=== PATIENT | female | born 1990 | race Caucasian/White ===

== ENCOUNTER 2019-03-11 02:28 | Emergency (ER) | payer MEDICAID ==
[2019-03-11] MEDS ORDERED: Sodium Chloride 0.9% 10 ML Syringe FLUSH PRN (03:09)
[2019-03-11] MEDS: Sodium Chloride 0.9% 1,000 ML IV ONE (03:28)
[2019-03-11] MEDS: Ondansetron 4 MG/2 ML SDV IVPUSH ONE (03:28)
--- NOTE | 2019-03-11 04:26 | EDM.PDOC ---
ED HPI GENERAL MEDICAL PROBLEM - General Chief Complaint: Abdominal Pain Stated Complaint: VOMMITING Time Seen by Provider: 03/11/19 02:40 Source of Information: Reports: Patient, Family History Limitations: Reports: No Limitations - History of Present Illness INITIAL COMMENTS - FREE TEXT/NARRATIVE: patient presents with concern for abdominal cramping, vomiting and diarrhea which started about 6pm this evening. Had some supper just prior of brats/hot dogs, significant other ate the same thing. No blood in diarrhea or vomit. History of ovarian cysts and endometriosis, but states this pain feels much different. hasn't tried to eat anything since then. Feels lightheaded, states she had multiple bowel movements and episodes of diarrhea, afraid she is dehydrated. No fever, but some chills and sweats romeo around throwing up. Notes her urine is slightly dark but does not have any other symptoms such as burning , urgency, or dribbling. No back/flank pain. History diabetes type II, started on insulin 3 years ago. Developed some peripheral neuropathy and started taking care of her diabetes better, has lost weight, is diligent with her insulin. BG 125 last night then took 6 units of her short acting. 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 Last A1c was 7. On metfomin but no ACEi. Sexually active, no contraception, LMP 1 week ago, last 3 days, normal for her. Lower Abdomen Pain Score (Numeric/FACES): 8 - Related Data Allergies Allergy/AdvReac Type Severity Reaction Status Date / Time hydromorphone [From Dilaudid] Allergy Itching Verified 03/11/19 03:05 Home Meds: Home Meds .Admelog 6 units SQ TIDMEALS 03/11/19 [History] Gabapentin [Neurontin] 400 mg PO BID 03/11/19 [History] Insulin Glargine,Hum.Rec.Anlog [Basaglar Kwikpen U-100] 32 units SQ BEDTIME 02/22 [History] Ondansetron HCl [Zofran] 4 mg PO Q6HR PRN #24 tablet 03/11/19 [Rx] buPROPion [Wellbutrin SR] 150 mg PO DAILY 03/11/19 [History] metFORMIN [Glucophage] 1,000 mg PO TID 03/11/19 [History] Past Medical History Psychiatric History: Reports: Depression Endocrine/Metabolic History: Reports: Diabetes, Type I - Past Surgical History Female Surgical History: Reports: Other (See Below) Other Female Surgeries/Procedures: ovarian cysts Social & Family History - Family History Family Medical History: Noncontributory - Tobacco Use Smoking Status *Q: Current Every Day Smoker Years of Tobacco use: 17 Packs/Tins Daily: 0.5 - Caffeine Use Caffeine Use: Reports: Soda - Recreational Drug Use Recreational Drug Use: No ED ROS GENERAL - Review of Systems Review Of Systems: ROS reveals no pertinent complaints other than HPI. Constitutional: Reports: Chills, Weakness, Fatigue, Diaphoresis. Denies: Fever HEENT: Denies: Ear Pain, Eye Pain, Rhinitis, Sinus Problem, Throat Pain Respiratory: Denies: Shortness of Breath, Wheezing Cardiovascular: Denies: Chest Pain, Dyspnea on Exertion, Palpitations Endocrine: Denies: Polydypsia, Polyuria GI/Abdominal: Denies: Black Stool, Bloody Stool, Hematochezia, Melena : Denies: Flank Pain, Frequency, Urgency Musculoskeletal: Denies: Joint Pain, Muscle Stiffness Skin: Denies: Wound Neurological: Denies: Confusion, Gait Disturbance Hematologic/Lymphatic: Denies: Easy Bleeding, Easy Bruising ED EXAM, GENERAL - Physical Exam Exam: See Below Free Text/Narrative:: Gen.: Alert, uncomfortable on bed but nontoxic appearing. Throat is without erythema, mucous murmurs moist there is no tonsil enlargement or takes. No cervical or subclavicular lymphadenopathy, neck is supple. Heart is regular rate and rhythm, lungs are clear throughout with no wheezes or crackles. Abdomen positive bowel sounds, soft and diffusely tender and almost nontender with distraction. Peripheral pulses +2 in both the upper and lower extremities, no lower extremity edema, there is no joint swelling noted, she is moving arms and legs normally and has equal strength of sides. Skin has no obvious lesions or rash. Course - Vital Signs Text/Narrative:: Patient seen and evaluated, initial impression is viral gastroenteritis given its sudden onset in both vomiting and diarrhea. Minimally tender, especially when distracted. Discussed IV fluid rehydration, Zofran, will check labs. Differential - unlike appendicitis or gallbladder based on exam. Remote possibility pyelonephritis, will check urine, doesn't usually cause diarrhea. Pancreatitis also seems unlikely. Last Recorded V/S: Last Vital Signs Temp 36.3 C 03/11/19 02:28 Pulse 88 03/11/19 04:30 Resp 18 03/11/19 04:30 BP 122/82 03/11/19 04:30 Pulse Ox 99 03/11/19 04:30 - Orders/Labs/Meds Orders: Active Orders 24 hr Category Date Time Status LIPASE, SERUM Stat Lab 03/11/19 03:20 Received Saline Lock Insert [OM.PC] Routine Oth 03/11/19 03:09 Ordered Labs: Laboratory Tests 03/11/19 03/11/19 03/11/19 Range/Units 02:50 02:50 03:20 WBC 14.5 H (4.5-12.0) X10-3/uL RBC 4.63 (3.23-5.20) x10(6)uL Hgb 13.6 (11.5-15.5) g/dL Hct 38.8 (30.0-51.3) % MCV 83.9 (80-96) fL MCH 29.4 (27.7-33.6) pg MCHC 35.1 (32.2-35.4) g/dL RDW 12.6 (11.5-15.5) % Plt Count 440 H (125-369) X10(3)uL MPV 8.9 (7.4-10.4) fL Neut % (Auto) 53.8 (46-82) % Lymph % (Auto) 34.0 (13-37) % [place] % (Auto) 6.8 (4-12) % Eos % (Auto) 5 (1.0-5.0) % Baso % (Auto) 1 (0-2) % Neut # (Auto) 7.8 (1.6-8.3) # Lymph # (Auto) 4.9 (0.6-5.0) # [place] # (Auto) 1.0 (0.0-1.3) # Eos # (Auto) 0.7 (0.0-0.8) # Baso # (Auto) 0.1 (0.0-0.2) # Sodium (135-145) mmol/L Potassium (3.5-5.3) mmol/L Chloride (100-110) mmol/L Carbon Dioxide (21-32) mmol/L BUN (7-18) mg/dL Creatinine (0.55-1.02) mg/dL Est Cr Clr Drug Dosing mL/min Estimated GFR (MDRD) (>60) BUN/Creatinine Ratio (9-20) Glucose (80-116) mg/dL Lactic Acid (0.4-2.2) mmol/L Calcium (8.6-10.2) mg/dL Total Bilirubin (0.1-1.3) mg/dL AST (5-25) IU/L ALT (12-36) U/L Alkaline Phosphatase (56-112) IU/L Total Protein (6.0-8.0) g/dL Albumin (3.5-5.2) g/dL Globulin g/dL Albumin/Globulin Ratio Urine Color Yellow (YELLOW) Urine Appearance Clear (CLEAR) Urine pH 5.0 (5.0-6.5) Ur Specific [place] 1.025 (1.010-1.025) Urine Protein Negative (NEGATIVE) mg/dL Urine Glucose (UA) Normal (NORMAL) mg/dL Urine Ketones Negative (NEGATIVE) mg/dL Urine Occult Blood Negative (NEGATIVE) Urine Nitrite Negative (NEGATIVE) Urine Bilirubin Negative (NEGATIVE) Urine Urobilinogen 4 H (NEGATIVE) mg/dL Ur Leukocyte Esterase Negative (NEGATIVE) Urine RBC 0-5 (0-5) Urine WBC 0-5 (0-5) Ur Squamous Epith Cells Few H (NS,R,O) Urine Bacteria Few H (NS) Urine HCG, Qual Negative (NEGATIVE) 03/11/19 03/11/19 Range/Units 03:20 03:20 WBC (4.5-12.0) X10-3/uL RBC (3.23-5.20) x10(6)uL Hgb (11.5-15.5) g/dL Hct (30.0-51.3) % MCV (80-96) fL MCH (27.7-33.6) pg MCHC (32.2-35.4) g/dL RDW (11.5-15.5) % Plt Count (125-369) X10(3)uL MPV (7.4-10.4) fL Neut % (Auto) (46-82) % Lymph % (Auto) (13-37) % [place] % (Auto) (4-12) % Eos % (Auto) (1.0-5.0) % Baso % (Auto) (0-2) % Neut # (Auto) (1.6-8.3) # Lymph # (Auto) (0.6-5.0) # [place] # (Auto) (0.0-1.3) # Eos # (Auto) (0.0-0.8) # Baso # (Auto) (0.0-0.2) # Sodium 139 (135-145) mmol/L Potassium 3.8 (3.5-5.3) mmol/L Chloride 103 (100-110) mmol/L Carbon Dioxide 22 (21-32) mmol/L BUN 18 (7-18) mg/dL Creatinine 0.7 (0.55-1.02) mg/dL Est Cr Clr Drug Dosing 102.40 mL/min Estimated GFR (MDRD) > 60 (>60) BUN/Creatinine Ratio 25.7 H (9-20) Glucose 233 H (80-116) mg/dL Lactic Acid 1.5 (0.4-2.2) mmol/L Calcium 8.8 (8.6-10.2) mg/dL Total Bilirubin 0.4 (0.1-1.3) mg/dL AST 13 (5-25) IU/L ALT 22 (12-36) U/L Alkaline Phosphatase 78 (56-112) IU/L Total Protein 7.1 (6.0-8.0) g/dL Albumin 3.8 (3.5-5.2) g/dL Globulin 3.3 g/dL Albumin/Globulin Ratio 1.2 Urine Color (YELLOW) Urine Appearance (CLEAR) Urine pH (5.0-6.5) Ur Specific [place] (1.010-1.025) Urine Protein (NEGATIVE) mg/dL Urine Glucose (UA) (NORMAL) mg/dL Urine Ketones (NEGATIVE) mg/dL Urine Occult Blood (NEGATIVE) Urine Nitrite (NEGATIVE) Urine Bilirubin (NEGATIVE) Urine Urobilinogen (NEGATIVE) mg/dL Ur Leukocyte Esterase (NEGATIVE) Urine RBC (0-5) Urine WBC (0-5) Ur Squamous Epith Cells (NS,R,O) Urine Bacteria (NS) Urine HCG, Qual (NEGATIVE) Meds: Medications Discontinued Medications Generic Name Dose Route Start Last Admin Trade Name Jv PRN Reason Stop Dose Admin Sodium Chloride 1,000 mls @ 500 mls/hr 03/11/19 03:16 03/11/19 03:28 Normal Saline IV 03/11/19 05:15 500 mls/hr .BOLUS ONE Administration Ondansetron HCl 4 mg 03/11/19 03:12 03/11/19 03:28 Zofran IVPUSH 03/11/19 03:13 4 mg ONETIME ONE Administration Ondansetron HCl Confirm 03/11/19 05:49 Zofran Administered 03/11/19 05:50 Dose 4 mg .ROUTE .STK-MED ONE Sodium Chloride 10 ml 03/11/19 03:09 Saline Flush FLUSH ASDIRECTED PRN Keep Vein Open - Re-Assessments/Exams Free Text/Narrative Re-Assessment/Exam: 03/11/19 labs resulted, elevated WBCs and platelets, Glu 200's range, rest of CMP unremarkable. Patient feeling better with some zofran, will let IVF finish and re-evaluate. Would also like note for work tomorrow. antibiotics 1 month ago for cyst/abscess, no history c diff, but would be something to keep in mind. Free Text/Narrative Re-Assessment/Exam: 03/11/19 repeat abdominal exam very nontender, just some diffuse discomfort, no rebound or guarding. IVF finished 1 L. She is comfortable with discharge, discussed reasons she would need to return and she expresses understanding. Note given for work and Rx zofran for home. Departure - Departure Time of Disposition: 04:22 Disposition: Home, Self-Care 01 Condition: Good Clinical Impression: Gastroenteritis - Discharge Information *PRESCRIPTION DRUG MONITORING PROGRAM REVIEWED*: Not Applicable *COPY OF PRESCRIPTION DRUG MONITORING REPORT IN PATIENT [place]: Not Applicable Prescriptions: Ondansetron HCl [Zofran] 4 mg PO Q6HR PRN #24 tablet PRN Reason: Vomiting Instructions: Ondansetron injection, Rotavirus Infection, Adult Referrals: PCP,None [Primary Care Provider] - Forms: ED Department Discharge, ED Return to Work/School Form Additional Instructions: careful with insulin if you are not taking in any carbs due to vomiting zofran Rx given to help with vomiting usually better not to take anything for diarrhea and just let it resolve on its own return if worsening/severe pain, fever, ongoing blood in vomit or stool, glucose out of control, or other concerns - My Orders Last 24 Hours: My Active Orders 03/11/19 03:09 Saline Lock Insert [OM.PC] Routine 03/11/19 03:20 LIPASE, SERUM Stat - Assessment/Plan Last 24 Hours: My Active Orders 03/11/19 03:09 Saline Lock Insert [OM.PC] Routine 03/11/19 03:20 LIPASE, SERUM Stat
[2019-03-11] MEDS ORDERED: Ondansetron 4 MG/2 ML SDV ONE (05:49)
== END 2019-03-11 04:35 | disposition home or self-care (01) ==
LOC: FB.ED 02:28
DX: K52.9 Noninfective gastroenteritis and colitis, unspecified (principal); E10.9 Type 1 diabetes mellitus without complications; F32.9 Major depressive disorder, single episode, unspecified; F17.210 Nicotine dependence, cigarettes, uncomplicated; Z88.5 Allergy status to narcotic agent; Z79.899 Other long term (current) drug therapy
CPT/HCPCS: 36415; 80053; 81001; 81025; 83605; 83690; 85025; 96361; 96374; 99283; J2405; J7030